=== PATIENT | male | born 1985 | race Caucasian/White ===

== ENCOUNTER 2018-06-09 11:52 | Emergency (ER) | payer OTHER ==
[2018-06-09 12:26] VITALS: BP 120/72
--- NOTE | 2018-06-09 12:27 | UC ---
Nausea/Vomiting/Diarrhea HPI - HPI Summary HPI Summary: Pt presents with with similar sx. Pt states ate left over chicken at 8pm last night,. Pt work aprox 3 am with n/v/d Pt has had 5 episodes of non black, non bloody diarrhea. Pt with 3 episodes of emesis - last approx 8am. No bilious , no blood. Mild abd cramping. No fever, chills. + fatigue. No cp, sob. no rash. Pt missed work today Pt's medications reviewed this visit - History of Current Complaint Stated Complaint: VOMITING,STOMACH ACHE Time Seen by Provider: 06/09/18 12:25 Hx Obtained From: Patient Pain Intensity: 3 - Allergies/Home Medications Allergies/Adverse Reactions: Allergies Allergy/AdvReac Type Severity Reaction Status Date / Time No Known Allergies Allergy Verified 06/09/18 12:27 PMH/Surg Hx/FS Hx/Imm Hx Previously Healthy: Yes - Surgical History Surgical History: Yes Surgery Procedure, Year, and Place: appy - Family History Known Family History: Positive: Hypertension - Social History Occupation: Employed Full-time Lives: With Family Alcohol Use: Rare Substance Use Type: None Smoking Status (MU): Heavy Every Day Tobacco Smoker Review of Systems Constitutional: Negative Gastrointestinal: Abdominal Pain, Vomiting, Diarrhea, Nausea All Other Systems Reviewed And Are Negative: Yes Physical Exam - Summary Physical Exam Summary: Vital Signs Reviewed: Yes A+Ox3, no distress, tired appearing Eyes: Conjunctiva Clear, DONNA. EOM intact and full ENT: Hearing grossly normal TM x 2 clear, mmoist, uvula midline, no exudate, no erythema Neck: Positive: Supple Respiratory: Positive: No respiratory distress, No accessory muscle use + CTA throughout no w/r Cardiovascular: RRR nl s1, s2 no m/r CBT <2 sec abd soft + BS nd no guarding, no distension, mild diffuse discomfort no guarding, no reboud Musculoskeletal Exam: KEN x 4 without difficulty Strength Intact, ROM Intact Neurological: Positive: Alert, + sensation throughout Psychological: Positive: Normal Response To Family Skin: Positive: no rash, no ecchymosis Triage Information Reviewed: Yes Vital Signs: Initial Vital Signs Temp 98.2 F 06/09/18 12:21 Pulse 77 06/09/18 12:21 Resp 18 06/09/18 12:21 BP 120/72 06/09/18 12:21 Pulse Ox 99 06/09/18 12:21 Naus/Vom/Diarrhea Course/Dx - Course Course Of Treatment: Pt with n/v/d and abd cramping since 3am today. with same. both ate same left over chicken at 8am. VSS pt appears hydrated with mild non focal abdominal pain. will give zofran, water trial. clears to bland. work note. return precautions - Differential Dx/Diagnosis Provider Diagnoses: nausea and vomiting Condition At Discharge: Stable Discharge - Sign-Out/Discharge Documenting (check all that apply): Patient Departure - Discharge Plan Condition: Stable Disposition: HOME Prescriptions: Ondansetron ODT TAB* [Zofran 4 MG Odt TAB*] 4 mg PO Q6H PRN #10 tab.odt PRN Reason: nausea and vomiting Patient Education Materials: Acute Nausea and Vomiting (ED), Acute Diarrhea (ED ) Forms: *Work Release Referrals: [facility] [place] PHYSICIAN REFERRAL [Outside] No Primary Care Phys,NOPCP [Primary Care Provider] - Additional Instructions: - Take medication as needed for nausea - For the first 6 hours, eat and drink clears (water, bossman justyn, soup broth, jello, popsicles, Gatorade). If you tolerate this okay, add bland foods such as dry toast, scrambled eggs, crackers. Wait until you are feeling better for 24 hours before eating spicy food, acidic food, tomato based food, fried food. -Okay to take tylenol every 6 hours for pain - get plenty of restful sleep - you may try applying a heating pad to your abdominal muscles - If you develop uncontrolled vomiting, fevers or pain it is recommended you go to the emergency department for further evaluation - Billing Disposition and Condition Condition: STABLE Disposition: Home
[2018-06-09] MEDS ORDERED: Ondansetron ODT TAB* 4 MG PO ONE (12:47)
== END 2018-06-09 13:23 | disposition home or self-care (01) ==
LOC: UCCORT 11:52
DX: F17.210 Nicotine dependence, cigarettes, uncomplicated (principal)
CPT/HCPCS: 99202; A9270-GY; G0463

== ENCOUNTER 2018-12-19 12:34 | Emergency (ER) | payer OTHER ==
[2018-12-19 13:26] VITALS: BP 114/73
--- NOTE | 2018-12-19 13:58 | ED ---
Influenza-Like Illness - HPI Summary HPI Summary: 33 year old male presents with sinus congestion and cough since last night. He denies any fever. He admits to sore throat. He admits to muscle aches. no abdominal pain, nausea, or vomiting. has no medical conditions. does smoke. - History of Current Complaint Chief Complaint: UCGeneralIllness Time Seen by Provider: 12/19/18 13:51 - Allergy/Home Medications Allergies/Adverse Reactions: Allergies Allergy/AdvReac Type Severity Reaction Status Date / Time No Known Allergies Allergy Verified 12/19/18 13:26 Home Medications: Home Medications Albuterol HFA INHALER* [Ventolin HFA Inhaler*] 2 puff INH Q4H PRN 12/19/18 [ History Confirmed 12/19/18] PMH/Surg Hx/FS Hx/Imm Hx Endocrine/Hematology History: Denies: Hx Diabetes, Hx Thyroid Disease Cardiovascular History: Denies: Hx Hypertension Respiratory History: Reports: Hx Asthma Denies: Hx Chronic Obstructive Pulmonary Disease (COPD) GI History: Denies: Hx Ulcer - Surgical History Surgery Procedure, Year, and Place: appy Infectious Disease History: No Infectious Disease History: Denies: Hx Hepatitis, Hx Human Immunodeficiency Virus (HIV), Traveled Outside the [place] in Last 30 Days - Family History Known Family History: Positive: Hypertension - Social History Alcohol Use: Rare Substance Use Type: Reports: None Smoking Status (MU): Heavy Every Day Tobacco Smoker Review of Systems Negative: Fever, Chills Negative: Chest Pain Positive: Cough. Negative: Shortness Of Breath Negative: Abdominal Pain All Other Systems Reviewed And Are Negative: Yes Physical Exam Triage Information Reviewed: Yes Vital Signs On Initial Exam: Initial Vitals Temp Pulse Resp BP Pulse Ox 98.4 F 89 18 114/73 99 12/19/18 13:23 12/19/18 13:23 12/19/18 13:23 12/19/18 13:23 12/19/18 13:23 Vital Signs Reviewed: Yes Appearance: Positive: Well-Appearing Skin: Positive: Warm, Dry Head/Face: Positive: Normal Head/Face Inspection Eyes: Positive: Normal, EOMI, DONNA, Conjunctiva Clear ENT: Positive: Normal ENT inspection, Pharynx normal, Nasal congestion, TMs normal Neck: Positive: Supple, Nontender, No Lymphadenopathy Respiratory/Lung Sounds: Positive: Clear to Auscultation, Breath Sounds Present Cardiovascular: Positive: Normal, RRR Abdomen Description: Positive: Nontender, Soft Bowel Sounds: Positive: Present Musculoskeletal: Positive: Normal Neurological: Positive: Normal Psychiatric: Positive: Normal Diagnostics - Vital Signs Vital Signs Temp Pulse Resp BP Pulse Ox 12/19/18 13:23 98.4 F 89 18 114/73 99 - Laboratory Lab Statement: Any lab studies that have been ordered have been reviewed, and results considered in the medical decision making process. Flu Symptom Course/Dx - Course Course Of Treatment: 33 year old male presents with sinus congestion and cough since last night. He denies any fever. He admits to sore throat. He admits to muscle aches. no abdominal pain, nausea, or vomiting. has no medical conditions. does smoke. on exam has sinus congestion noted. lungs CTA. flu neg strept neg. will treat supportively. patient understand and agrees with plan. - Diagnoses Differential Diagnosis/HQI/PQRI: Positive: Influenza, Pneumonia, Upper Respiratory Infection Provider Diagnoses: Cough Discharge - Sign-Out/Discharge Documenting (check all that apply): Patient Departure All imaging exams completed and their final reports reviewed: No - Discharge Plan Condition: Good Disposition: HOME Patient Education Materials: Upper Respiratory Infection (ED) Referrals: [facility] [place] [facility] REFERRAL [Outside] Additional Instructions: Take Tylenol and ibuprofen for muscle aches and fever every 6 hours Saline rinse can be used multiple times a day for nasal congestion Drink plenty of fluids establish care with primary Return to ED if develop any new or worsening symptoms - Billing Disposition and Condition Condition: GOOD Disposition: Home - Attestation Statements Provider Attestation: Per institutional requirements, I have reviewed the chart, however, I was not consulted specifically or made aware of this patient by the midlevel provider. I did not personally evaluate, interact with , or disposition this patient.
[2018-12-19 14:09] LABS: Influenza A Molecular NEGATIVE (Negative); Influenza B Molecular NEGATIVE (Negative)
--- NOTE | 2018-12-19 15:44 | UC ---
Course/Dx - Diagnoses Provider Diagnoses: Cough Discharge - Sign-Out/Discharge Documenting (check all that apply): Post-Discharge Follow Up All imaging exams completed and their final reports reviewed: No Studies - Discharge Plan Condition: Good Disposition: HOME Patient Education Materials: Upper Respiratory Infection (ED) Referrals: [facility] [place] PHYS[facility]IAN REFERRAL [Outside] Additional Instructions: Take Tylenol and ibuprofen for muscle aches and fever every 6 hours Saline rinse can be used multiple times a day for nasal congestion Drink plenty of fluids establish care with primary Return to ED if develop any new or worsening symptoms - Billing Disposition and Condition Condition: GOOD Disposition: Home
--- NOTE | 2018-12-19 15:44 | UC ---
Course/Dx - Diagnoses Provider Diagnoses: Cough Discharge - Sign-Out/Discharge Documenting (check all that apply): Post-Discharge Follow Up All imaging exams completed and their final reports reviewed: Yes - Discharge Plan Condition: Good Disposition: HOME Patient Education Materials: Upper Respiratory Infection (ED) Referrals: [facility] [place] [facility]YS[facility]IAN REFERRAL [Outside] Additional Instructions: Take Tylenol and ibuprofen for muscle aches and fever every 6 hours Saline rinse can be used multiple times a day for nasal congestion Drink plenty of fluids establish care with primary Return to ED if develop any new or worsening symptoms - Billing Disposition and Condition Condition: GOOD Disposition: Home
== END 2018-12-19 14:40 | disposition home or self-care (01) ==
LOC: UCEAST 12:34
DX: R05 Cough (principal); R09.81 Nasal congestion; J02.9 Acute pharyngitis, unspecified; J45.909 Unspecified asthma, uncomplicated; F17.200 Nicotine dependence, unspecified, uncomplicated
CPT/HCPCS: 87651; 99211; G0463

== ENCOUNTER 2019-04-03 23:04 | Emergency (ER) | payer OTHER ==
[2019-04-04] MEDS ORDERED: Tetan/Diph/Pertus SYR(Tdap)* 0.5 ML SYR(BOOSTRIX) use SYR IM ONE (01:54)
[2019-04-04 02:12] VITALS: BP 131/78
--- NOTE | 2019-04-04 04:47 | ED ---
Laceration/Wound HPI - HPI Summary HPI Summary: The patient is a 34 y/o M presenting to [facility] accompanied by partner with a chief complaint of laceration with a chief complaint of laceration to the right dorsal wrist starting [employer] after cutting self with saw. The bleeding is controlled, but he notes he picked off some skin. He has not applied any medication to the cut. There is currently no pain associated. He denies fever. - History of Current Complaint Stated Complaint: R WRIST LAC PER PT Time Seen by Provider: 04/04/19 01:54 Hx Obtained From: Patient Onset/Duration: Sudden Onset, Lasting Hours, Still Present Aggravating: Nothing Alleviating: Nothing Onset Severity: Mild Current Severity: Mild Pain Intensity: 0 Pain Scale Used: 0-10 Numeric - Allergy/Home Medications Allergies/Adverse Reactions: Allergies Allergy/AdvReac Type Severity Reaction Status Date / Time No Known Allergies Allergy Verified 12/19/18 13:26 PMH/Surg Hx/FS Hx/Imm Hx Endocrine/Hematology History: Denies: Hx Diabetes, Hx Thyroid Disease Cardiovascular History: Denies: Hx Hypertension Respiratory History: Reports: Hx Asthma Denies: Hx Chronic Obstructive Pulmonary Disease (COPD) GI History: Denies: Hx Ulcer - Surgical History Surgery Procedure, Year, and Place: appy Infectious Disease History: No Infectious Disease History: Denies: Hx Hepatitis, Hx Human Immunodeficiency Virus (HIV), Traveled Outside the [place] in Last 30 Days - Family History Known Family History: Positive: Hypertension - Social History Alcohol Use: Rare Hx Substance Use: No Substance Use Type: Reports: None Hx Tobacco Use: Yes Smoking Status (MU): Heavy Every Day Tobacco Smoker Do You Chew or Dip Tobacco: No Have You Chewed or Dipped Tobacco in the LAST YEAR: No Have You Smoked in the Last Year: No Review of Systems Negative: Fever Positive: Other - laceration on the right wrist All Other Systems Reviewed And Are Negative: Yes Physical Exam - Summary Physical Exam Summary: Appearance: Well-appearing, Well-nourished, lying in bed comfortable Skin: Warm, dry, no obvious rash, 2 cm laceration on the right dorsal wrist at the ulnar styloid Eyes: sclera anicteric, no conjunctival pallor ENT: mucous membranes moist Neck: deferred Respiratory: No signs of respiratory distress Cardiovascular: Appears well perfused, pulses are nml Abdomen: deferred Musculoskeletal: Moving all 4 extremities without obvious discomfort Neurological: Awake and alert, mentation is normal, speech is fluent and appropriate Psychiatric: affect is normal, does not appear anxious or depressed Triage Information Reviewed: Yes Vital Signs On Initial Exam: Initial Vitals Temp Pulse Resp BP Pulse Ox 97.5 F 61 18 138/86 100 04/03/19 23:06 04/03/19 23:06 04/03/19 23:06 04/03/19 23:06 04/03/19 23:06 Vital Signs Reviewed: Yes Procedures - Laceration/Wound Repair 1 Location: upper extremity - right dorsal wrist at ulnar styloid Description: Linear Length, Depth and Shape: 2 cm Suture Type: Nylon - 5-0 Diagnostics - Vital Signs Vital Signs Temp Pulse Resp BP Pulse Ox 04/04/19 02:12 97.9 F 61 15 131/78 97 04/03/19 23:06 97.5 F 61 18 138/86 100 - Laboratory Lab Statement: Any lab studies that have been ordered have been reviewed, and results considered in the medical decision making process. Laceration Repair Course/Dx - Course Course Of Treatment: The patient is a 34 y/o M presenting to [facility] accompanied by partner with a chief complaint of laceration with a chief complaint of laceration to the right dorsal wrist starting [employer] after cutting self with saw. Upon physical exam, the patient exhibits a 2 cm laceration on the right dorsal wrist at the ulnar styloid. In the ED course, the patient was administered a Boostrix vaccine because he was not UTD on tetanus. The laceration was repaired using 5-0 nylon sutures. He tolerated the procedure well. He is diagnosed with laceration. He will be discharged home with follow up in one week for removal of stitches. He agrees with this plan and understands the need fore return to the ED for any new or worsening symptoms. - Clinical Impression Provider Diagnoses: Laceration Discharge - Sign-Out/Discharge Documenting (check all that apply): Patient Departure - Patient will be discharged home. Patient Received Moderate/Deep Sedation with Procedure: No - Discharge Plan Condition: Good Disposition: HOME Patient Education Materials: Care For Your Stitches (ED), Laceration (ED) Referrals: [facility] [place] PHYS[facility]IAN REFERRAL [Outside] [facility], [MD - TESTING] - 1 Week Additional Instructions: RETURN TO THE EMERGENCY DEPARTMENT IN ONE WEEK FOR REMOVAL OF STITCHES. - Billing Disposition and Condition Condition: GOOD Disposition: Home - Attestation Statements Document Initiated by Olimpia: Yes Documenting Scribe: Dia Bolivar Provider For Whom Olimpia is Documenting (Include Credential): Dr. Flip Spear MD Scribe Attestation: I, Dia Bolivar scribed for Dr. Flip Spear MD on 04/05/19 at 0450. Scribe Documentation Reviewed: Yes Provider Attestation: The documentation as recorded by the Dia pope accurately reflects the service I personally performed and the decisions made by me, Dr. Flip Spear MD Status of Scribe Document: Viewed
== END 2019-04-04 02:12 | disposition home or self-care (01) ==
LOC: ED 23:04
DX: S61.512A Laceration without foreign body of left wrist, initial encounter (principal); W27.8XXA Contact with other nonpowered hand tool, initial encounter; Y92.9 Unspecified place or not applicable; Z23 Encounter for immunization
CPT/HCPCS: 12001; 90471; 90715; 99282

== ENCOUNTER 2019-06-03 12:09 | Emergency (ER) | payer OTHER ==
[2019-06-03] MEDS ORDERED: Ketorolac *IM* INJ* 60 MG/2 ML VIAL IM ONE (13:22)
[2019-06-03 13:37] LABS: Hematocrit 44 % (42-52); Hemoglobin 15.6 g/dL (14.0-18.0); Mean Corpuscular HGB Conc 36 g/dL (31-36); Mean Corpuscular Hemoglobin 33 pg (27-31); Mean Corpuscular Volume 92 fL (80-94); Mean Platelet Volume 7.8 fL (7.4-10.4); Platelet Count 211 10^3/uL (150-450); Red Blood Count 4.81 10^6 /uL (4.18-5.48); Red Cell Distribution Width 14 % (10-15)
--- NOTE | 2019-06-03 13:46 | ED ---
GI/ HPI - HPI Summary HPI Summary: This patient is a 34-year-old male presenting to the ED with left testicular pain radiating to the LLQ and left flank. Pain began yesterday with testicular pain as a pressure which then radiated to the L flank. He also endorses mild nausea. He denies history OF STDs. He denies any penile discharge, erythema, however endorses scrotal tenderness. Pain is worse with palpation and ambulation, better with rest, however the pain remains 5/10 even at rest. Pain is worse now to the left flank since yesterday. Denies fevers, sweats or chills. Denies any CP, SOB, KOEHLER. Patient is otherwise healthy and takes no medications. - History of Current Complaint Chief Complaint: EDFlankPain Time Seen by Provider: 06/03/19 12:36 Stated Complaint: FLANK/GROIN PAIN PER PT Hx Obtained From: Patient Timing: Constant Severity: Moderate Current Severity: Moderate Pain Intensity: 10 Location of Pain: LLQ Additional Locations for Males: Testicles Pain Characteristics: Aching, Burning Pain Radiates to: Flank Associated Signs and Symptoms: Positive: Back Pain - L flank. Negative: Nausea , Vomiting, Bruising, Recent Abnormal Coagulation Studies, Discharge, Hematuria , Dysuria, Change in Appetite, Flank Pain Additional Signs & Symptoms: Negative: Penile Swelling, Penile Discharge, Lesions, STD Aggravating Factor(s): Palpation, Movement Alleviating Factor(s): Nothing - Risk Factors GI Bleed Risk Factor(s): Negative Spontaneous AB Risk Factor(s): Negative Testicular Torsion Risk Factor(s): Negative - Allergy/Home Medications Allergies/Adverse Reactions: Allergies Allergy/AdvReac Type Severity Reaction Status Date / Time No Known Allergies Allergy Verified 06/03/19 12:13 PMH/Surg Hx/FS Hx/Imm Hx Previously Healthy: Yes Endocrine/Hematology History: Denies: Hx Diabetes, Hx Thyroid Disease Cardiovascular History: Denies: Hx Hypertension Respiratory History: Reports: Hx Asthma Denies: Hx Chronic Obstructive Pulmonary Disease (COPD) GI History: Denies: Hx Ulcer - Surgical History Surgery Procedure, Year, and Place: appy - Immunization History Hx Pertussis Vaccination: No Immunizations Up to Date: Yes Infectious Disease History: No Infectious Disease History: Denies: Hx Hepatitis, Hx Human Immunodeficiency Virus (HIV), Traveled Outside the [place] in Last 30 Days - Family History Known Family History: Positive: Hypertension - Social History Occupation: Employed Full-time Lives: With Family Alcohol Use: Rare Hx Substance Use: No Substance Use Type: Reports: None Hx Tobacco Use: Yes Smoking Status (MU): Heavy Every Day Tobacco Smoker Have You Smoked in the Last Year: No Review of Systems Negative: Fever, Chills, Fatigue, Skin Diaphoresis Negative: Palpitations, Chest Pain Negative: Shortness Of Breath, Cough Positive: Abdominal Pain - LLQ - mild. Negative: Vomiting, Diarrhea, Nausea Positive: flank pain - L. Negative: burning, dysuria, discharge, incontinence Negative: Arthralgia, Myalgia Neurological: Negative All Other Systems Reviewed And Are Negative: Yes Physical Exam Triage Information Reviewed: Yes Vital Signs On Initial Exam: Initial Vitals Temp Pulse Resp BP Pulse Ox 98.2 F 69 12 123/67 100 06/03/19 12:09 06/03/19 12:09 06/03/19 12:09 06/03/19 12:09 06/03/19 12:09 Vital Signs Reviewed: Yes Appearance: Positive: Well-Appearing, Well-Nourished Skin: Positive: Warm, Skin Color Reflects Adequate Perfusion Head/Face: Positive: Normal Head/Face Inspection Eyes: Positive: EOMI, DONNA, Conjunctiva Clear Neck: Positive: Supple, No Lymphadenopathy Respiratory/Lung Sounds: Positive: Clear to Auscultation, Breath Sounds Present Cardiovascular: Positive: RRR, Pulses are Symmetrical in both Upper and Lower Extremities Male Genital Exam: Positive: Other - On physical exam the epidydimus and spermatic cord are without tenderness or masses. Positive bilateral cremaster reflex. No abnnormal elevation of the L testicle or shortening of the spermatic cord. No scrotal erythema bilaterally. Positive Prehn's sign. No evidence of hydrocele or varicocele on examination. No palpable mass appreciated in the left testes. No drainage or discharge from the penis.. Negative: Epididymal Tenderness, Scrotum Tenderness (L), Testicular Tenderness ( L) - For the Musculoskeletal: Positive: Normal, Strength/ROM Intact Neurological: Positive: Normal, Speech Normal Psychiatric: Positive: Normal, Affect/Mood Appropriate AVPU Assessment: Alert Diagnostics - Vital Signs Vital Signs Temp Pulse Resp BP Pulse Ox 06/03/19 12:09 98.2 F 69 12 123/67 100 - Laboratory Lab Results: Lab Results 06/03/19 Range/Units 13:33 WBC 13.0 H (3.5-10.8) 10^3/uL RBC 4.81 (4.18-5.48) 10^6 /uL Hgb 15.6 (14.0-18.0) g/dL Hct 44 (42-52) % MCV 92 (80-94) fL MCH 33 H (27-31) pg MCHC 36 (31-36) g/dL RDW 14 (10-15) % Plt Count 211 (150-450) 10^3/uL MPV 7.8 (7.4-10.4) fL Result Diagrams: 06/03/19 13:33 06/03/19 13:33 Lab Statement: Any lab studies that have been ordered have been reviewed, and results considered in the medical decision making process. GIGU Course/Dx - Course Course Of Treatment: During his course of treatment, the patient is evaluated for left-sided flank pain and L testicular pain. Patient presents with left testicular pain x 2 days which radiates to the groin on the ipsilateral side. On physical exam the epidydimus and spermatic cord are without tenderness or masses. Positive bilateral cremaster reflex. No abnnormal elevation of the L testicle or shortening of the spermatic cord. No scrotal erythema bilaterally. Positive Prehn's sign. No evidence of hydrocele or varicocele on examination. No palpable mass appreciated in the left testes. No drainage or discharge from the penis. Denies UTI sxs. Afebrile. No abdominal tenderness on palpation. Lungs CTA, RRR. No L sided CVA tenderness. UA obtained: 2+ WBCs and 2+ RBCs. GC/chlamydia pending. During this course, the patient is given Zofran and Toradol. This with good effect. At this time on re- examination, the patient is asymptomatic. IMPRESSION: 1. A 4 MM OBSTRUCTIVE CALCULUS IS SEEN IN THE DISTAL LEFT URETER (NEAR THE PELVIC BRIM). THERE IS UPSTREAM HYDRONEPHROSIS. THE LEFT KIDNEY IS EDEMATOUS. 2. A SECOND NONOBSTRUCTIVE PUNCTATE CALCULUS IS SEEN IN THE SUPERIOR POLE OF LEFT KIDNEY. 3. CHOLELITHIASIS WITH NO INTRA OR EXTRAHEPATIC BILIARY DUCTAL DILATATION. 4. STATUS POST APPENDECTOMY. Patient remains asymptomatic, however is given Flomax , toradol, Zofran and Cipro. He will f/u with PCP or return to the ED for worsening symptoms. - Diagnoses Provider Diagnoses: Kidney stone Discharge - Sign-Out/Discharge Documenting (check all that apply): Patient Departure Patient Received Moderate/Deep Sedation with Procedure: No - Discharge Plan Condition: Stable Disposition: HOME Prescriptions: Ciprofloxacin TAB* [Cipro 500 MG TAB*] 500 mg PO BID #10 tab Ketorolac TAB * [Toradol TAB *] 10 mg PO Q6H #16 tab Ondansetron ODT TAB* [Zofran 4 MG Odt TAB*] 4 mg PO Q6H PRN #12 tab.odt MDD 4 PRN Reason: Nausea Tamsulosin CAP* [Flomax CAP*] 0.4 mg PO DAILY #5 cap Patient Education Materials: Kidney Stones (ED) Referrals: No Primary Care Phys,NOPCP [Primary Care Provider] - Damian Askew MD [Medical Doctor] - Additional Instructions: Please return to the ED for any worsening symptoms Flomax once daily Toradol up to four times daily for pain Zofran four times daily for nausea - Billing Disposition and Condition Condition: STABLE Disposition: Home
[2019-06-03] MEDS ORDERED: Ondansetron ODT TAB* 4 MG SL ONE (13:54)
[2019-06-03 13:58] LABS: ALT 15 U/L (7-52); AST 18 U/L (13-39); Albumin 4.8 g/dL (3.2-5.2); Albumin/Globulin Ratio 2.2 (1-3); Alkaline Phosphatase 58 U/L (34-104); Anion Gap 6 mmol/L (2-11); Blood Urea Nitrogen 15 mg/dL (6-24); C Reactive Protein < 1.00 mg/L (<8.01); CO2 Carbon Dioxide 25 mmol/L (22-32); Calcium 10.1 mg/dL (8.6-10.3); Chloride 106 mmol/L (101-111); EGFR African American 96.9 (>60); EGFR Non-African American 80.1 (>60); Globulin 2.2 g/dL (2-4); Glucose 127 mg/dL (70-100); Potassium 4.7 mmol/L (3.5-5.0); Sodium 137 mmol/L (135-145)
[2019-06-03 15:12] LABS: Urine Appearance Cloudy; Urine Bacteria Absent (Absent); Urine Bilirubin Negative (Negative); Urine Blood 3+ (Negative); Urine Color Yellow; Urine Glucose Negative (Negative); Urine Ketones Negative (Negative); Urine Nitrite Negative (Negative); Urine Protein Negative (Negative); Urine Red Blood Cell 3+(>10/hpf) (Absent); Urine Specific Gravity 1.013 (1.010-1.030); Urine Squamous Epithelial Cell Present (Absent); Urine Urobilinogen Negative (Negative); Urine White Blood Cell 2+(11-20/hpf) (Absent)
[2019-06-03 15:25] VITALS: BP 128/67
[2019-06-05 14:12] LABS: Chlamydia trachomatis NAA Negative (Negative); Neisseria gonorrhoeae (GC) NAA Negative (Negative)
== END 2019-06-03 15:24 | disposition home or self-care (01) ==
LOC: ED 12:09
DX: N13.2 Hydronephrosis with renal and ureteral calculous obstruction (principal); F17.210 Nicotine dependence, cigarettes, uncomplicated
CPT/HCPCS: 36415; 74176; 80053; 81003; 81015; 85027; 86140; 87086; 87491; 87591; 96372; 99282; A9270-GY; J1885